=== PATIENT | male | born 1960 | race Caucasian/White ===

== ENCOUNTER → 2018-12-31 16:15 | Outpatient (CLI) | payer OTHER, SELFPAY ==
[2018-12-31 17:22] LABS: Anion Gap 7 (5-15); BUN 17 mg/dL (7-18); BUN/Creat Ratio 16.5 RATIO (10-20); Calcium,Total 8.6 mg/dL (8.5-10.1); Chloride 107 mmol/L (98-107); Creatinine, Serum 1.03 mg/dL (0.70-1.30); EST Glomerular Filtration Rate 79 mL/min (>60); Est Glom Filt Rate - Afr Amer 96 mL/min (>60); Glucose 86 mg/dL (74-106); PSA,Total - Annual Screen 1.26 ng/mL (0.00-4.00); Potassium 4.1 mmol/L (3.5-5.1); Sodium Level 141 mmol/L (136-145)
== END ==
PROVIDERS: Family Provider Family Medicine; PCP Family Medicine; Visit Provider Family Medicine
DX: Z00.00 Encounter for general adult medical examination without abnormal findings (principal); Z12.5 Encounter for screening for malignant neoplasm of prostate
CPT/HCPCS: 36415; 80048; 84153; G0103

== ENCOUNTER 2019-07-13 05:53 | Day surgery (SDC) | payer OTHER, SELFPAY ==
[2019-07-13] VITALS (8 sets, daily range): BP systolic 130–147; BP diastolic 86–98; PULSE 55–73; RESP 15–16; TEMP 36–37.1; O2SAT 97–98; BMI 31.0
[2019-07-13] MEDS: Lactated Ringers 1,000 ML 100 ML IV (06:27)
--- NOTE | 2019-07-13 06:59 | HP.PCM_ITS ---
History of Present Illness Date of Admission: 07/13/19 The patient is a 59 year old M who presents for a colonoscopy. He has never had a colonoscopy. Past Medical/Surgical History - Planned Operation Planned Operative Procedure/s: COLONOSCOPY Date of Operative Procedure: 07/13/19 Permit Signed: Yes S.O.S: No Is This Patient Having a Total Joint: No - Previous Hospitalizations/Surgeries HX Hospitalizations: No HX of Surgeries: R KNEE ARTHROSCOPY Any Problems With Anesthesia: Yes - BP INCREASE DURING OR You/Your Family Experience Fever (Hyperthermia) With Anes: No Cholinesterase deficiency: No - Cardiovascular Hx Chest Pain within Last 2 months: No Hx of Irregular Heartbeat and/or Afib: No Hx Heart Attack: No Hx Congestive Heart Failure: No Hx Rheumatic Fever: No Hx Hypertension: Yes - ON MED Hx Internal Defibrillator: No Hx Pacemaker: No Hx Cardiac Catheterization: No Hx Cardiac Surgery/Stents/Etc.: No Hx Stress Test: No HX Edema: No Hx Pain in Legs when Walking/Leg Cramps: No - Respiratory Chronic Cough: No HX of Shortness of Breath: No Hoarseness: No Hx Chronic Obstructive Pulmonary Disease (COPD): No Hx Asthma: No Hx Emphysema: No Hx Sleep Apnea: No Hx Oxygen Use at Home: No Hx Respiratory Tract Infection/Cold (presently): No Do You Snore Loudly (louder than talking or can be heard): Yes Do You Often Feel Tired/ Fatigued/ Sleepy Dring Daytime?: No Has Anyone Observed You Stop Breathing During Sleep?: No Result (for STOP score): Positive Hx Smoking: Yes - QUIT 15 YRS AGO Smoking Status: Former smoker - Gastrointestinal Hx Gastroesophageal Reflux: No Hx Gastrointestinal Disorders: No Hx Gastrointestinal Bleed: No Hx Ulcer: Yes - 30 YRS AGO Hx Hiatal Hernia: No Difficulty Chewing/Swallowing: No Recent Onset of Swallowing Problems: No Special diet followed at home: No Hx Unplanned Weight Loss of 20#: No HX Unplanned Weight Gain of 20#: No - Neurological Hx Seizures: No HX Syncope/Blackout Spells/Unconsciousness: No Hx CVA/Stroke: No Hx Transient Ischemic Attacks (TIA): No Hx Multiple Sclerosis: No Hx Parkinson's Disease: No Hx Head/Neck Injury: No Hx Headaches: No Hx Back Injury/Pain: No Recent Onset of Speech Difficulty: No Restless Legs: No Does patient have nerve stimulator: No - Blood Disorder Hx Leukemia: No Bleeding Tendencies: No Hx Deep Vein Thrombosis: No Hx High Cholesterol: No Blood Transmitted Disease: No Hx Hepatitis: No Hx Cirrhosis: No Hx Anemia: No Hx Blood Disorders: No - Genitourinary Hx Renal Disease: No - Musculoskeletal Hx Arthritis: No Hx Rheumatoid Arthritis: No Hx Gout: No Recent Onset of an Orthopedic Problem: No - Endocrine Hx Diabetes: No Thyroid Disease: No Hx Steroid Therapy: No - Psycho/Social Hx Substance Use: No Hx Alcohol Use: No Hx Anxiety: No Hx Depression: No Mental Illness: No Hx Dementia: No - Miscellaneous Hx Cancer: No Recent Exposure to Contagious Disease: No Active MRSA: No Hx of C-Diff: No Any Loose Teeth: No Allergies No Known Allergies Allergy (Verified 07/13/19 06:16) - Discharge Is Pt Admitted From a Long-Term, or a Residential: No Who Could Help: DAUGHTER & After D/C, Where Do you Plan to Go: Return Home - Physical Exam Vitals/I&O's: Vital Signs Temp Pulse Resp BP Pulse Ox 97.8 F 73 15 147/89 H 97 07/13/19 06:18 07/13/19 06:18 07/13/19 06:18 07/13/19 06:18 07/13/19 06:18 Oxygen Delivery Method Room Air Weight: 210 lb 1.608 oz Body Mass Index (BMI) 31.0 General: Alert, Oriented x3 Lungs: Clear to auscultation Cardiovascular: Regular rate, Regular Rhythm, No murmurs Abdomen: Bowel Sounds Present, Soft, Non Tender, Non-Distended Current Medications Lactated Ringer's () 1,000 mls @ 100 mls/hr IV .Q10H ONE Stop: 07/13/19 16:34 Assessment/Plan Assessment: Screening colonoscopy Plan: Is to perform a colonoscopy Surgery Risks - Colonoscopy Risks Include but are not Limited To: Risks include but are not limited to: Bleeding, perforation requiring further surgery, inability to complete colonoscopy requiring barium enema.
--- NOTE | 2019-07-13 07:28 | OP.COLON_ITS ---
Patient Name: Toy Hernandez Procedure Date: 07/13/2019 6:23 AM Date of : 1960 Age: 59 Procedure: Colonoscopy Indications: Screening for colorectal malignant neoplasm Providers: Harley Mckeon MD Referring MD: Toy Gunter Medicines: See the Anesthesia note for documentation of the administered medications Patient Profile: This is a 59 year old male. Refer to note in patient chart for documentation of history and physical. Last Colonoscopy: none. The patient's first colonoscopy is today. Complications: No immediate complications. Procedure: Pre-Anesthesia Assessment: - Prior to the procedure, a History and Physical was performed, and patient medications and allergies were reviewed. The patient's tolerance of previous anesthesia was also reviewed. The risks and benefits of the procedure and the sedation options and risks were discussed with the patient. All questions were answered, and informed consent was obtained. Prior Anticoagulants: The patient has taken no previous anticoagulant or antiplatelet agents. ASA Grade Assessment: II - A patient with mild systemic disease. After reviewing the risks and benefits, the patient was deemed in satisfactory condition to undergo the procedure. After I obtained informed consent, the scope was passed under direct vision. Throughout the procedure, the patient's blood pressure, pulse, and oxygen saturations were monitored continuously. The adult colonoscope was introduced through the anus and advanced to the cecum, identified by appendiceal orifice and ileocecal valve. The colonoscopy was performed without difficulty. The patient tolerated the procedure well. The quality of the bowel preparation was good. Scope In: 7:07:42 AM Scope Withdrawal Time 0 hours 6 minutes 40 seconds Scope Out: 7:20:22 AM Total Procedure Duration Time 0 hours 12 minutes 40 seconds Findings: Non-bleeding internal hemorrhoids were found during retroflexion. The hemorrhoids were mild and small. The exam was otherwise without abnormality. Impression: - Non-bleeding internal hemorrhoids. - The examination was otherwise normal. - No specimens collected. Recommendation: - Discharge patient to home. - Resume previous diet. - Continue present medications. - Repeat colonoscopy in 10 years for screening purposes. - Return to primary care physician (date not yet determined). Procedure Code(s): --- Professional --- 96125, Colonoscopy, flexible; diagnostic, including collection of specimen(s) by brushing or washing, when performed (separate procedure) Diagnosis Code(s): --- Professional --- Z12.11, Encounter for screening for malignant neoplasm of colon K64.8, Other hemorrhoids CPT copyright 2017 [employer]. All rights reserved. The codes documented in this report are preliminary and upon sport psychologist review may be revised to meet current compliance requirements. MD Harley Schneider MD 07/13/2019 7:27:49 AM This report has been signed electronically. Number of Addenda: 0 Note Initiated On: 07/13/2019 6:23 AM
== END 2019-07-13 08:22 | disposition home or self-care (01) ==
LOC: EN 05:53 → AC 05:55
PROVIDERS: Family Provider Family Medicine; PCP Family Medicine; Referring Provider Family Medicine; Visit Provider Surgery
PROC: 0DJD8ZZ Inspection of Lower Intestinal Tract, Via Natural or Artificial Opening Endoscopic (ICD-10-PCS; CPT 45378; principal; 2019-07-13 06:55)
DX: Z12.10 Encounter for screening for malignant neoplasm of intestinal tract, unspecified (principal); K64.8 Other hemorrhoids; Z79.899 Other long term (current) drug therapy; I10 Essential (primary) hypertension; Z87.891 Personal history of nicotine dependence; Z87.19 Personal history of other diseases of the digestive system
CPT/HCPCS: 45378; J7120

== ENCOUNTER → 2020-02-03 | Outpatient (CLI) | payer OTHER, SELFPAY ==
[2019-07-13 06:18] VITALS: BMI 31.0
[2020-02-03 08:51] VITALS: BMI 31.0
[2020-02-06 20:07] LABS: Banana <0.10 kU/L (Class 0); Celery <0.10 kU/L (Class 0); Cheddar Cheese <0.10 kU/L (Class 0); Lettuce <0.10 kU/L (Class 0); Peach <0.10 kU/L (Class 0)
[2020-02-06 20:49] LABS: Lactalbumin, Alpha <0.10 kU/L (Class 0); Turkey <0.10 kU/L (Class 0)
[2020-02-07 03:06] LABS: Almond <0.10 kU/L (Class 0); Barley, Whole Grain <0.10 kU/L (Class 0); Beef <0.10 kU/L (Class 0); Carrot <0.10 kU/L (Class 0); Casein <0.10 kU/L (Class 0); Cashew <0.10 kU/L (Class 0); Chicken <0.10 kU/L (Class 0); Chocolate <0.10 kU/L (Class 0); Clam <0.10 kU/L (Class 0); Codfish <0.10 kU/L (Class 0); Corn <0.10 kU/L (Class 0); Crab <0.10 kU/L (Class 0); Egg, White <0.10 kU/L (Class 0); Egg, Whole <0.10 kU/L (Class 0); Egg, Yolk <0.10 kU/L (Class 0); Garlic <0.10 kU/L (Class 0); Gluten <0.10 kU/L (Class 0); Hazelnut/Filbert <0.10 kU/L (Class 0); Lobster <0.10 kU/L (Class 0); Milk (Cow) <0.10 kU/L (Class 0); Oat <0.10 kU/L (Class 0); Onion <0.10 kU/L (Class 0); Orange <0.10 kU/L (Class 0); Pea <0.10 kU/L (Class 0); Pecan <0.10 kU/L (Class 0); Pork <0.10 kU/L (Class 0); Potato, White <0.10 kU/L (Class 0); Rice <0.10 kU/L (Class 0); Rye <0.10 kU/L (Class 0); Salmon <0.10 kU/L (Class 0); Shrimp <0.10 kU/L (Class 0); Soybean <0.10 kU/L (Class 0); Strawberry <0.10 kU/L (Class 0); Tomato <0.10 kU/L (Class 0); Tuna <0.10 kU/L (Class 0); Walnut, (Food) <0.10 kU/L (Class 0); Wheat <0.10 kU/L (Class 0); Yeast <0.10 kU/L (Class 0)
[2020-02-07 04:00] LABS: Apple <0.10 kU/L (Class 0); Peanut <0.10 kU/L (Class 0)
== END | disposition home or self-care (01) ==
LOC: BFHLAB 09:23
PROVIDERS: PCP Family Medicine; Visit Provider Family Medicine
DX: T61.91XA Toxic effect of unspecified seafood, accidental (unintentional), initial encounter (principal)
CPT/HCPCS: 36415; 86003

== ENCOUNTER 2020-08-14 08:18 | Day surgery (SDC) | payer OTHER, SELFPAY ==
[2020-07-24 08:19] VITALS: BMI 31.7
--- NOTE | 2020-08-09 14:17 | EKG12_ITS ---
Test Reason : PRE OP Blood Pressure : / mmHG Vent. Rate : 075 BPM Atrial Rate : 075 BPM P-R Int : 132 ms QRS Dur : 148 ms QT Int : 402 ms P-R-T Axes : 030 -44 035 degrees QTc Int : 448 ms Normal sinus rhythm Left axis deviation Right bundle branch block Abnormal ECG Confirmed by ALVARO LYNCH, ОЛЕГ ([id number]), order editor CANDACE SCHRADER ([id number]) on 08/15/2020 9:39:43 A M Referred By: Harley Mckeon Confirmed By:JM JOHN MD
--- NOTE | 2020-08-14 06:00 | HP_ITS ---
Intake Vital Signs 07/24/20 BP 152/84 H 07/24/20 Blood Pressure Location Lt brachial 07/24/20 Position Sitting 07/24/20 Height 5 ft 9 in 07/24/20 Weight: 215 lb 07/24/20 BMI 31.7 07/24/20 BP 171/87 H 07/24/20 Blood Pressure Location Rt brachial 07/24/20 Position Sitting 07/24/20 Respiration 16 07/24/20 Pulse 77 07/24/20 Pulse Source Monitor 07/24/20 Temp 98.3 F 07/24/20 Temp Source Temporal 07/24/20 Pulse Oximetry (%) 97 07/24/20 Oxygen Delivery Method room air Intake Visit Reasons: Update H/P Hernia Surgery DP Food Cart Attendant Required: No Is patient in pain?: No Allergies No Known Allergies Allergy (Verified 07/24/20 08:19) Medications Ibuprofen [Motrin] 600 mg PO Q6 PRN #24 tab 08/23/13 [Rx Confirmed 07/24/20] amlodipine 5 mg tablet 10 mg PO DAILY tab 02/03/20 [History Confirmed 07/24/20] PFSH Medical History (Updated 07/24/20 @ 11:01 by Divya SIDDIQUI, PA-C) Umbilical hernia (Acute) HTN (hypertension) (Chronic) Surgical History (Updated 07/24/20 @ 08:19 by Terri Cerda) S/P right knee arthroscopy (Acute) Family History Father Hypertension Social History (Updated 07/24/20 @ 11:15 by Divya SIDDIQUI, PA-C) Smoking Status: Former smoker alcohol intake: current alcohol intake frequency: a few times a week HPI HPI Surgical H&P: Yes HPI: JAQUELIN BAUGH, is a 60 M who presents to the office today for an update history and physical for an upcoming hernia repair. Patient denies recent hospitalizations or illnesses. He denies previous cardiac history including myocardial infarction or stroke. He denies pulmonary history. Patient denies pain at the umbilical hernia site. He denies bowel changes. Patient's previous history per Dr. Mckeon: JAQUELIN BAUGH, is a 59 M who presents to the office today for Right sided abdominal pain. Patient was disconnecting the PTO joint from a [place] and started to develop some pain on the right side of his abdomen down into the right groin area. I have seen him back in January of this year for an umbilical hernia and he was unsure whether this was related. He has not had any change in his bowel or bladder habits he has not been having any more seafood so is not been having any crampy abdominal pain. ROS General General: No weight change, appetite, fatigue, colon cancer, breast cancer or weakness HEENT HEENT: No difficulty swallowing, eye injury, eye surgery, swollen glands or hoarseness Endo Endocrine: No thyroid disease, diabetes mellitus, thyroid cancer, Hair loss, heat intolerance or cold intolerance Skin Skin: No rash or changing moles Breast Breast: No left breast lump, right breast lump, nipple discharge, breast pain, abnormal mammogram, abnormal US or breast enlargement Musc Musculoskeletal: No back problems, arthritis, rheumatoid arthritis, gout or joint pain Cardio Cardiovascular: Yes high blood pressure; no murmur, pacemaker, heart disease, atrial fibrillation, heart attack, heart stent, palpitations, shortness of breat with exertion or chest pain Psych Psychiatric: No depression, anxiety or hearing voices Resp Respiratory: No shortness of breath, No sleep apnea, No cough, No COPD, No asthma, No emphysema, No wheezing Gastro Gastrointestinal: Yes abdominal pain, No nausea or vomiting, No diarrhea, No constipation, No blood in stool, No acid reflux, No hemorrhoids, No ulcers, No gallbladder problem, No black,tarry stools [place] Hematologic: No blood thinners, No blood disorders, No bleeding, No anemia, No blood clots Neuro Neurologic: No weakness Exam Const General: cooperative, healthy appearing, comfortable, no acute distress [facility] Head: normal to inspection Eyes General: appearance normal, both eyes and all related structures Neck Neck: normal visual inspection Neck mass: No Chest Breast Palpation: No nipple discharge Resp Effort & Inspection: normal respiratory effort Auscultation: clear to auscultation bilaterally Cardio Rate: regular rate Rhythm: regular rhythm Heart Sounds: no murmurs GI Inspection: normal to inspection Palpation: soft, hernia umbilical Auscultation: normal bowel sounds Skin General: no rashes or lesions noted Neuro General: no focal motor deficits, CN's II-XI intact bilaterally Extrem General: normal to inspection Psych Appearance: grossly normal Affect: normal affect Assessment & Plan Problems 1. Umbilical hernia without obstruction and without gangrene K42.[address] Mckeon will plan to perform an umbilical hernia repair with mesh. Procedure details, risks and benefits have been reviewed with the patient. Patient has had the opportunity to ask and have questions answered. Patient verbally understands and agrees with the plan. Coding Level of Care Code No Charge Diagnoses Umbilical hernia without obstruction and without gangrene K42.9 ??Obstruction and gangrene presence: without obstruction or gangrene Comment Update H&P I have re-examined the patient. There are no clinical changes since date of exam.
[2020-08-14 09:00] VITALS: BP 147/90; PULSE 74; RESP 16; TEMP 37.1; O2SAT 16; BMI 32.1
[2020-08-14] MEDS: Lactated Ringers 1,000 ML 75 ML IV (09:15)
--- NOTE | 2020-08-14 10:00 | HERN_PTH ---
PATIENT: JAQUELIN BAUGH [place] [facility] [id number] AGE/SX: 60/M ROOM: RE08/14/[address]: Dr. Harley Mckeon MD : 1960 BED: DIS: 08/14/2020 SPEC #: [id number] RECD: 08/14/20 12:46 STATUS: ELLIE REQ #: [id number] CHERI: 08/14/20 10:[address]: Harley Mckeon DEPT: SURGICAL PATHOLOGY RECD BY: Lazara Bai ENTERED: 08/14/20 13:11 SP TYPE: Hernia OTHR DR: Dr. Jaquelin Gunter, DO Tissues: HERNIA Procedures: Surgery Specimen Level II HEADER OPERATION: Ventral hernia repair with mesh PRE-OP DIAGNOSIS: Umbilical hernia TISSUE SUBMITTED: Hernia sac MICROSCOPIC DIAGNOSIS Hernia sac: A piece of adipose tissue, clinically umbilical hernia sac. SJ:leonid 08/15/20 MICROSCOPIC DESCRIPTION Slides are reviewed. GROSS DESCRIPTION Received in fixative is one container labeled with the patient's name and designated hernia sac. The specimen consists of a piece of adipose tissue measuring 3.5 x 2 x 2 cm. Sections do not reveal any mass lesion. Rifle Case Repairer sections are submitted in one cassette. / SJ:leonid 08/14/20 TC:5 CPT: 45184
[2020-08-14] MEDS: Cefazolin 2 GM in 0.9% Normal Saline 100 ML IV (10:14)
--- NOTE | 2020-08-14 10:24 | DCINST_ITS ---
Discharge Diet: Light diet - advance as tolerated Discharge Activity: Return to Normal Activity, May Drive - when you are no longer taking narcotic pain medications., May Shower - with the bandage in place 1-2 days after surgery. Lifting Restrictions: 20 pounds for 8 weeks. Additional Activity Instructions:: Climbing stairs is fine, walking is encouraged. Sitting in bed may be uncomfortable. Sitting up using your lateral muscles (sitting up sideways) is usually more comfortable. Do not drive, work heavy equipment of sign legal documents for 24 hours. If your hernia repair was an ingunial repair, you may have scrotal swelling, an ice pack and/or athletic support can provide more comfort. Pain medications may cause nausea, you should typically eat light foods as you take your pain medications. Pain medications may also cause constipation. If you have difficulty with this, discuss with your doctor. Call your doctor if your incision/area has: Continuous Slow Oozing, Sudden Increased Bleeding, Increased Pain/ Swelling, Increased Redness, Foul Smelling Discharge Call your doctor if you observe: Fever of 101 or Higher Suture Line Care: Avoid Pulling/Pushing, Avoid Pinching/Bending Additional Dressing/Incision Instructions:: Leave the operative bandage on for 2-3 days. When you remove the bandage, leave the steri-strips on place until your follow up appointment or they fall off. Allergies/Adverse Reactions: Allergies No Known Allergies Allergy (Verified 08/07/20 11:14) Medications to take at Discharge Ibuprofen [Motrin] 600 mg PO Q6 PRN #24 tab 08/23/13 amlodipine 5 mg tablet 10 mg PO DAILY tab 02/03/20 Primary Care Physician: Toy Gunter DO [Primary Care Provider] - Test Results: Test results from this visit will be discussed in further detail at your follow- up appointment, if applicable. Please Follow Up With: Harley Mckeon MD - [phone] When: Plan to have a follow up appointment in 7 days. Call to schedule.
--- NOTE | 2020-08-14 10:25 | PCM.OPRPT ---
Problem List (1) Ventral hernia Status: Acute Qualifiers: Obstruction and gangrene presence: without obstruction or gangrene Qualified Code(s): K43.9 - Ventral hernia without obstruction or gangrene Report of Operation Date of Procedure: 08/14/20 Pre-Operative Diagnosis: Umbilical hernia Post-Operative Diagnosis: Ventral hernia Surgery/Procedure Performed:: Ventral hernia repair with mesh Type of Anesthesia:: General Anesthesiologist: Chris Salinas Specimen's removed: Hernia sac Estimated Blood Loss (mL): < 25 cc Description of Procedure: Patient was brought into the operating room. Placed in the supine position. Under excellent general endotracheal ovation the abdomen was sterilely prepped and draped in usual fashion. Local was injected supraumbilically dissection was carried down hernia was identified superior to the umbilicus. I dissected out a preperitoneal hernia fat removed and sent it to pathology for permanent sectioning. I then dissected in the preperitoneal plane creating a window once I had this completely free and clear I placed a medium Ventralex hernia patch into the wound. Circumferentially tacked it to the fascia using #1 Nurolon's. I injected local. I had X hemostasis the mesh laid completely flat subcu was brought together with 2-0 Vicryl. Deep dermal stitches of 3-0 Vicryl. And running 4-0 Monocryl. Dermabond was applied sterile dressings were applied and the patient tolerated the procedure well. - Admit VTE Documentation VTE Present on Admission: No VTE Mechan Device Prophylaxis: SCD's VTE Pharm Prophylaxis ordered?: No Reason prophylaxis not ordered:: Treatment Not Indicated [id number]: Other Procedure See Notes - [id number]
[2020-08-14] MEDS: Bupivacaine Mpf 0.5% 30 ML VIAL (10:50)
[2020-08-14 11:17] VITALS: BP 126/81; BP 147/90; PULSE 59; RESP 16; TEMP 36.3; O2SAT 95
[2020-08-14 11:30] VITALS: BP 113/80; BP 147/90; PULSE 53; RESP 16; O2SAT 96
[2020-08-14 11:45] VITALS: BP 126/79; BP 147/90; PULSE 53; RESP 16; O2SAT 98
[2020-08-14 11:59] VITALS: BP 115/85; BP 147/90; PULSE 58; RESP 12; TEMP 36.9
[2020-08-14 13:34] VITALS: BP 131/83; BP 147/90; PULSE 69; RESP 16; TEMP 36.8; O2SAT 97
== END 2020-08-14 13:36 | disposition home or self-care (01) ==
LOC: SDC 08:20 → AC 08:20
PROVIDERS: PCP Family Medicine; Referring Provider Surgery; Visit Provider Surgery
PROC: (CPT 49560; principal; 2020-08-14 09:45)
DX: K43.9 Ventral hernia without obstruction or gangrene (principal); I10 Essential (primary) hypertension; Z79.899 Other long term (current) drug therapy; Z87.891 Personal history of nicotine dependence; Z20.828 Contact with and (suspected) exposure to other viral communicable diseases
CPT/HCPCS: 00832; 49560; 49568; 87426; 88302; 93005; C1781; C9803; J7120; J2405

== ENCOUNTER → 2023-10-20 | Outpatient (CLI) | payer OTHER, SELFPAY ==
--- NOTE | 2023-10-20 12:43 | CT_ITS ---
CT RIGHT LOWER EXTREMITY WITH 3-D IMAGING CLINICAL INDICATION: Unilateral post-traumatic osteoarthritis, right knee. TECHNIQUE: Axial CT images of the right lower extremity (including right hip, right knee, and right ankle) was performed without IV contrast material. Coronal and sagittal reformats were provided. RADIATION DOSAGE (If Supplied By Facility): CTDIvol = ( 18.76 ) mGy, DLP = ( 1125.28 ) mGycm COMPARISON: No relevant prior comparison study available. FINDINGS: Bones: There is mild degenerative arthrosis of the right hip joint with mild marginal osteophyte formation. There is moderate degenerative arthrosis of the medial femorotibial compartment of the right knee with moderate joint space narrowing, marginal osteophyte formation, and subchondral sclerosis. There is mild degenerative arthrosis of the patellofemoral and lateral femorotibial compartments with small marginal osteophyte formation. Osseous structures are intact without evidence of fracture or dislocation. No lytic or blastic osseous masses. Soft Tissues: There is a small right knee joint effusion. The deep soft tissue structures are unremarkable. There is mild subcutaneous soft tissue edema along the anterior aspect of the knee. The superficial soft tissues are otherwise unremarkable without evidence of hematoma or foreign body. CT/Extremity Lower without Contra IMPRESSION: Tricompartment degenerative arthrosis of the right knee, most pronounced in the medial femorotibial compartment. Small right knee joint effusion. Mild subcutaneous soft tissue edema along the anterior aspect of the right knee. Electronically Signed: Faisal Sales MD at 13:22 EST ,
--- NOTE | 2023-10-20 12:44 | EKG12_ITS ---
Test Reason : PREOP Blood Pressure : / mmHG Vent. Rate : 073 BPM Atrial Rate : 073 BPM P-R Int : 146 ms QRS Dur : 152 ms QT Int : 402 ms P-R-T Axes : 007 -26 008 degrees QTc Int : 442 ms Normal sinus rhythm Right bundle branch block Abnormal ECG Confirmed by ALVARO LYNCH, ОЛЕГ ([id number]), video news editor BRANDO LANIER ([id number]) on 10/26/2023 10:02:03 AM Referred By: Jakub Ramos Confirmed By:JM JOHN MD
[2023-10-20 13:19] LABS: Absolute Lymphocyte Count 1.24 X10^3/uL (0.83-4.51); Absolute Neutrophil Count 5.7 X10^3/uL (2.0-7.7); Basophil# 0.04 X10^3/uL; Basophil% 0.5 % (0-1); Eosinophil# 0.09 X10^3/uL; Eosinophils% 1.2 % (0-5); Hematocrit 46.6 % (40-54); Hemoglobin 15.5 g/dL (13.0-16.5); Lymphocyte # 1.24 X10^3/ul (0.83-4.51); Lymphocyte % 16.3 % (19-41); Mean Corp Hgb Conc 33.3 g/dL (32-36); Mean Corpuscular Hgb 27.4 pg (27.0-32.0); Mean Corpuscular Volume 82.3 fL (80-94); Mean Platelet Vol. 9.2 fl (6.2-12.0); Monocyte# 0.54 X10^3/uL; Monocyte% 7.1 % (0-10); NRBC Flagged by Analyzer 0 % (0-5); Neutrophil # 5.66 X10^3/uL (2.7-7.7); Neutrophil % 74.4 % (47-70); Platelet Count 263 K/mm3 (150-450); RBC Distribution Width CV 14.4 % (11.6-14.6); RBC Distribution Width SD 43.1 fl (35.1-43.9); Red Blood Count 5.66 M/mm3 (4.6-6.2); White Blood Count 7.6 K/mm3 (4.4-11.0)
[2023-10-20 13:54] LABS: Albumin, Serum 3.7 g/dL (3.2-5.0); Anion Gap 3 (5-15); BUN 16 mg/dL (7-18); BUN/Creat Ratio 13.3 RATIO (10-20); Calcium,Total 9.1 mg/dL (8.5-10.1); Chloride 113 mmol/L (98-107); EST Glomerular Filtration Rate 65 mL/min (>60); Est Glom Filt Rate - Afr Amer 79 mL/min (>60); Glucose 96 mg/dL (74-106); Potassium 3.8 mmol/L (3.5-5.1); Sodium Level 140 mmol/L (136-145)
--- OUTSIDE RECORDS SUMMARY | 2023-10-20 21:37 | XMS RPT_ITS | CCD ---
Author Name Unknown Address [id number] [place] [address] Organization [facility] Care Team Providers Care Manager Knowledge Name Role Phone Brenda Gao DO Unavailable [phone] Systems Management Consultant, System Unavailable Unavailable Lorena Barbosa Unavailable Unavailable Unavailable Unavailable CLAUDIA LYNCH, DR DULCE MARIA [place] Attending Unavailab le DR JAQUELIN HINKLE DO Primary Care Unavailab le Allergies Allergy Classification Reported Allergen(s) Allergy Type Date of Onset Reaction(s) Facility (1 source) Fish - dietary Allergy to substance (finding) [facility] Work Phone: Medications Completed/Discontinued Medications Medication Drug Class(es) Dates Sig (Normalized) Sig (Original) dicyclomine hydrochloride 10 mg oral capsule (1 source) Anticholinergic Start: 04-20-2007 take 1 capsule by mouth every eight hours as needed BENTYL, 10MG (Oral Capsule) 1 (one) Capsule Q 8 hr prn for 0 days Quantity: 30 {Capsule} Refills: 0 Ordered: 28-Dec-2009 Start : 20-Apr-2007 Inactive mometasone furoate 0.05 mg/actuat metered dose nasal spray (1 source) Corticosteroid Start: 12-28-2009 NASONEX, 50MCG/ACT (Nasal Suspension) 2 (two) Suspension qd for 0 days Quantity: 1 {Suspension} Refills: 0 Ordered: 30-Dec-2009 Bonny Cisse DO Start : 28-Dec-2009 Active Problems Problem Classification Problem Date Documented Date Episodic/Chronic Administrative/social admission (2 sources) Administrative reason for encounter; Translations: [Other general medical examination for administrative purposes] Resolved: 01-11-2009 01-11-2009 Episodic Other nutritional; endocrine; and metabolic disorders (2 sources) Cholesterol level - finding; Translations: [Low HDL (under 40)] 07-09-2015 Chronic Otitis media and related conditions (4 sources) Dysfunction of eustachian tube; Translations: [Eustachian tube dysfunction] 05-29-2015 Episodic Vital Signs Date Time Vital Sign Value Performing Clinician Facility 12-28-2009 08:05-0400 Body temperature 98.1 [degF] Brenda Gao DO Work Phone: [facility] Work Phone: 12-28-2009 08:05-0400 Diastolic blood pressure 78 mm[Hg] Brenda Gao DO Work Phone: [facility] Work Phone: Encounters Encounter Date Encounter Type Care Provider Facility Start: 09-16-[address] DULCE MARIA LUX MD Facility:[facility] Start: 12-28-2009 End: 12-30-2009 Patient encounter procedure Brenda Gao DO Work Phone: [facility] Start: 05-05-2007 End: 05-05-2007 Office outpatient visit 10 minutes Brenda Gao DO Work Phone: [facility] Start: 04-20-2007 End: 04-20-2007 Office outpatient visit 40 minutes Brenda Gao DO Work Phone: [facility] Plan of Treatment Date Care Activity Detail Author Start: 05-05-2007 Lipid panel Lipid Panel (84761) [facility] Work Phone: Start: 04-20-2007 Glucose quantitative blood xcpt reagent strip Glucose, PP/2 Hour (41021) [facility] Work Phone: Start: 04-20-2007 Lipid panel LIPID PANEL ([id number]) [facility] Work Phone: Payers Date Payer Category Payer Policy ID Unknown [facility] Social History Date Type Detail Facility Caffeine Use Caffeine Use [facility] Work Phone: Family History No Family History Records FoundUnknown Family Member Name Dates Details Diabetes Mellitus Comments:Maternal Grandfathe r, Paternal Grandfather Status:Active Hypertension Comments:Father Status:Active Stroke Comments:Father Status:Active Summary Purpose Advance Directives No Advanced Directives Records Found Additional Source Comments (unrecognized sect ion and content) No Status Records Found INFORMATION SOURCE (unrecogn ized section and content) FOR RECORDS PERTAINING TO PATIENTS WHO ARE OR HAVE BEEN ENROLLED IN A CHEMICAL DEPENDENCY/SUBSTANCEABUSE PROGRAM, SOME INFORMATION MAY BE OMITTED. This clinical summary was aggregated from multiple sources. Caution should be exercised in using it in the provision of clinical care. This summary normalizes information from multiple sources, and as a consequence, information in this document may materially change the coding, format and clinical context of patient data. In addition, data may be omitted in some cases. CLINICAL DECISIONS SHOULD BE BASED ON THE PRIMARY CLINICAL RECORDS. [employer] [facility]. provides no warranty or guarantee of the accuracy or completeness of information in this document.
== END | disposition home or self-care (01) ==
LOC: CT 12:41
PROVIDERS: PCP Family Medicine; Referring Provider Specialist; Visit Provider Specialist
DX: Z01.818 Encounter for other preprocedural examination (principal); M17.31 Unilateral post-traumatic osteoarthritis, right knee; M25.561 Pain in right knee; Z01.810 Encounter for preprocedural cardiovascular examination
CPT/HCPCS: 36415; 73700; 80048; 82040; 85025; 93005

== ENCOUNTER → 2025-08-10 | Outpatient (CLI) | payer OTHER, SELFPAY ==
--- OUTSIDE RECORDS SUMMARY | 2025-08-10 10:07 | XMS RPT_ITS | CCD ---
Author Organization [facility] Inform ion Partnership [facility] Care Team Providers Care Pbx Supervisor Name Role Phone Brenda Gao DO Unavailable Lead Javascript Engineer, System Unavailable Unavailable Lorena Barbosa Unavailable Unavailable [...] tube; Translations: [Eustachian tube dysfunction] 05-29-2015 Episodic Comment on above: use decong Residual codes; unclassified (2 sources) Family history of diabetes mellitus; Translations: [Family history of diabetes mellitus] 04-20-2007 Episodic Unclassified (3 sources) Vital Signs Date Time Vital Sign Value Performing Clinician Facility 12-28-2009 08:05-0400 Body temperature 98.1 [degF] Brenda Cárdenason DO Work Phone: [facility] Work Phone: 12-28-2009 08:05-0400 Diastolic blood pressure 78 mm[Hg] Brenda Murray DO Work Phone: [facility] Work Phone: Comment on above: Patient Position: Sitting; Cuff Location : Left Arm; Cuff Size: Large 12-28-2009 08:05-0400 Heart rate 84 /min Brenda Gao DO Work Phone: [facility]; [facility] Work Phone: Comment on above: Pattern: Regular 12-28-2009 08:05-0400 Respiratory rate 18 /min Brenda Gao DO Work Phone: [facility] Work Phone: Comment on above: Pattern: Unlabored 12-28-2009 08:05-0400 Systolic blood pressure 140 mm[Hg] Brenda Gao DO Work Phone: [facility]; [facility] Work Phone: Comment on above: Patient Position: Sitting; Cuff Location : Left Arm; Cuff Size: Large 05-05-2007 08:12-0400 Body height 0 cm Brenda Cárdenason DO Work Phone: [facility]; [facility] Work Phone: 05-05-2007 08:12-0400 Body temperature 98.6 [degF] Brenda Cárdenason DO Work Phone: [facility]; [facility] Work Phone: Comment on above: Method: Oral 05-05-2007 08:12-0400 Body weight 0 kg Brenda Murray DO Work Phone: [facility] Work Phone: 05-05-2007 08:12-0400 Diastolic blood pressure 80 mm[Hg] Brenda Murray DO Work Phone: [facility] Work Phone: Comment on above: Patient Position: Sitting; Cuff Location : Left Arm; Cuff Size: Standard 05-05-2007 08:120400 Head Occipital-frontal circumference 0 cm Brenda Murray DO Work Phone: [facility] Work Phone: 05-05-2007 08:12-0400 Heart rate 72 /min Brenda Murray DO Work Phone: [facility] Work Phone: Comment on above: Pattern: Regular 05-05-2007 08:12-0400 Respiratory rate 20 /min Brenda Murray DO Work Phone: [facility] Work Phone: Comment on above: Pattern: Unlabored 05-05-2007 08:12-0400 Systolic blood pressure 120 mm[Hg] Brenda Murray DO Work Phone: [facility]; [facility] Work Phone: Comment on above: Patient Position: Sitting; Cuff Location : Left Arm; Cuff Size: Standard 04-20-2007 09:17-0400 Body height 177.8 cm Brenda Murray DO Work Phone: [facility] Work Phone: 04-20-2007 09:17-0400 Body mass index (BMI) [Ratio] 32.21 kg/m2 Brenda Murray DO Work Phone: [facility] Work Phone: 04-20-2007 09:17-0400 Body surface area Derived from formula 2.19 m2 Brenda Gao DO Work Phone: [facility] Work Phone: 04-20-2007 09:17-0400 Body temperature 98.7 [degF] Brenda Gao DO Work Phone: [facility] Work Phone: Comment on above: Method: Oral 04-20-2007 09:17-0400 Body weight 101.83 kg Brenda Gao DO Work Phone: [facility] Work Phone: 04-20-2007 09:17-0400 Diastolic blood pressure 70 mm[Hg] Brenda Gao DO Work Phone: [facility]; [facility] Work Phone: Comment on above: Patient Position: Sitting; Cuff Location : Right Arm; Cuff Size: Standard 04-20-2007 09:17-0400 Head Occipital-frontal circumference 0 cm Brenda Gao DO Work Phone: [facility] Work Phone: 04-20-2007 09:17-0400 Heart rate 60 /min Brenda Gao DO Work Phone: [facility]; [facility] Work Phone: Comment on above: Pattern: Regular 04-20-2007 09:17-0400 Respiratory rate 16 /min Brenda Gao DO Work Phone: [facility]; [facility] Work Phone: Comment on above: Pattern: Unlabored 04-20-2007 09:17-0400 Systolic blood pressure 122 mm[Hg] Brenda Gao DO Work Phone: [facility]; [facility] Work Phone: Comment on above: Patient Position: Sitting; Cuff Location : Right Arm; Cuff Size: Standard Encounters Encounter Date Encounter Type Care Provider [...] Author Start: 05-05-2007 Lipid panel Lipid Panel (83245) [facility] Work Phone: Start: 04-20-2007 Glucose quantitative blood xcpt reagent strip Glucose, PP/2 Hour ([id number]) [facility] Work Phone: Start: 04-20-2007 Lipid panel LIPID PANEL ([id number]) [facility] Work Phone: Payers Date Payer Category Payer Policy ID Unknown [facility] Social History Date Type Detail Facility Caffeine Use Caffeine Use [facility] Work Phone: Comment on above: qd Inactive Lives with spouse 5 none Family History No Family History Records FoundUnknown Family Member Name Dates Details Diabetes Mellitus Comments:Maternal Grandfathe r, Paternal Grandfather Status:Active Hypertension Comments:Father Status:Active Stroke Comments:Father Status:Active Summary Purpose Advance Directives No Advanced Directives Records Found Additional Source Comments (unrecognized sect ion and content) No Status Records Found INFORMATION SOURCE (unrecogn ized section and content) DATE CREATED AUTHOR 09/18/2023 [facility]undation (MD) FOR RECORDS PERTAINING TO PATIENTS WHO ARE [...] BE BASED ON THE PRIMARY CLINICAL RECORDS. [facility]. provides no warranty or guarantee of the accuracy or completeness of information in this document.
[2025-08-10 12:39] LABS: Hematocrit 48.2 % (40-54); Hemoglobin 16.1 g/dL (13.0-16.5); Immature Granulocytes Count 0.050 X10^3/uL (0.0-0.0); Mean Corp Hgb Conc 33.4 g/dL (32-36); Mean Corpuscular Volume 83.5 fL (80-94); Mean Platelet Vol. 9.2 fl (6.2-12.0); NRBC Flagged by Analyzer 0 % (0-5); Platelet Count 270 K/mm3 (150-450); RBC Distribution Width CV 15.0 % (11.6-14.6); RBC Distribution Width SD 45.5 fl (35.1-43.9); Red Blood Count 5.77 M/mm3 (4.6-6.2); White Blood Count 8.1 K/mm3 (4.4-11.0)
[2025-08-10 14:16] LABS: AST(SGOT) 23 U/L (<=37); Alanine Aminotransfer ALT/SGPT 29 U/L (<=46); Albumin, Serum 4.1 g/dL (3.4-4.8); Alkaline Phosphatase 80 U/L (40-129); Anion Gap 14 (5-15); BUN 16 mg/dL (4-19); BUN/Creat Ratio 14.2 RATIO (10-20); Calcium,Total 9.3 mg/dL (7.6-11.0); Carbon Dioxide 21.6 mmol/L (21.0-32.0); Chloride 103 mmol/L (98-108); Cholesterol 168 mg/dL (<=200); Globulin 2.8 g/dL (2.2-4.2); Glucose 90 mg/dL (70-99); Low Density Lipoprotein Calc. 99 mg/dL; PSA,Total - Annual Screen 1.46 ng/mL (0.02-4.00); Potassium 4.1 mmol/L (3.3-5.1); Triglycerides 128 mg/dL; Very Low Density Lipoprotein 26 mg/dL (5-40); cholesterol:hdl ratio screen 3.64
== END | disposition home or self-care (01) ==
LOC: MTLAB 09:20
PROVIDERS: PCP Family Medicine; Referring Provider Family Medicine; Visit Provider Family Medicine
DX: Z00.00 Encounter for general adult medical examination without abnormal findings (principal); Z12.5 Encounter for screening for malignant neoplasm of prostate
CPT/HCPCS: 36415; 80053; 80061; 84153; 85025; G0103